=== PATIENT | female | born 1965 | race Caucasian/White ===

== ENCOUNTER → 2023-03-24 | Outpatient (REF) | payer BC ==
[~2023-03-24] MED LIST: IOPAMIDOL 370 MG/ML 100 ML INFUS..BTL INJ ONE; SODIUM CHLORIDE 0.9% 100 ML ONE; SODIUM CHLORIDE 0.9% 500ML 500 ML ONE
[2023-03-24 11:02] LABS: CREATININE, SERUM 1.99 mg/dL (0.57-1.11)
== END ==
LOC: CT 09:58
PROVIDERS: ATTEND Internal Medicine Interventional Cardiology
DX: Z13.6 Encounter for screening for cardiovascular disorders (principal); E78.2 Mixed hyperlipidemia; I10 Essential (primary) hypertension; E11.9 Type 2 diabetes mellitus without complications; E66.01 Morbid (severe) obesity due to excess calories
CPT/HCPCS: 36415; 70498; 82565; 84520; 96360; J7040; J7050; Q9967